=== PATIENT | female | born 1960 | race Caucasian/White ===

== ENCOUNTER → 2017-03-08 | Outpatient (CLI) | payer BC ==
--- NOTE | 2017-03-08 10:46 | P.HPOB ---
History of Present Illness H&P Date: 03/08/17 Chief Complaint: The patient is here for her routine gynecologic exam and mammogram. This is a 57-year-old with an LMP of 2006. The patient is without gynecologic complaints. Review of Systems She is getting about 2 pounds over the last year. She denies respiratory, cardiac, or G.I. problems. Past Medical History Past Medical History: No Reported History History of Any Multi-Drug Resistant Organisms: None Reported Past Surgical History: No Surgical Hx Reported Additional Past Surgical History / Comment(s): D&C. Colonoscopy 2015. 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 - Past Family History Mother Family Medical History: Cancer (Mother had breast cancer.) Medications and Allergies Home Medications and Allergies Comment(s): 1 multivitamin daily. Vitamin D 2000 units daily Home Medications Medication Instructions Recorded Confirmed Type No Known Home Medications [No 03/17/16 03/22/16 History Known Home Medications] Allergies Allergy/AdvReac Type Severity Reaction Status Date / Time No Known Allergies Allergy Verified 03/22/16 10:16 Exam - Vital Signs Vital signs: Blood pressure 144/81, height 5'4", weight 231 pounds, BMI 40, temperature 97.4 , pulse 102. This is a well-developed well-nourished white female who is alert and oriented times 3 in no acute distress. HEENT: Within normal limits. NECK: Supple without mass or thyromegaly. CHEST AND LUNGS: Clear to auscultation. HEART: Regular rate and rhythm. BREASTS: Are without mass or discharge. AXILLARY EXAM: Negative for adenopathy. BACK: Negative for CVA tenderness. ABDOMEN: Soft, nontender, without palpable masses. PELVIC EXAM: Normal external genitalia with mild atrophy. Cervix and vagina appear normal with mild atrophy. There is no unusual discharge. There is no evidence of prolapse. The uterus is midposition, nongravid size and nontender. There are no palpable adnexal masses or tenderness. RECTAL EXAM: recto vaginal exam is negative for mass or tenderness and is negative for occult blood. EXTREMITIES: Nontender. IMPRESSION: 1. 57-year-old menopausal female with normal gynecologic exam. 2. Mildly elevated blood pressure. PLAN: 1. Pap smear was deferred since she had a normal one last year. 2. Self breast examination was discussed. 3. Mammogram will be done today. 4. We have discussed her elevated blood pressure. I have recommended she regularly take her blood pressure at home since she does have a blood pressure cuff. She will follow-up with Dr. Cool for blood pressure elevations. 5. Osteoporosis prevention was discussed. She will plan on doing a bone density test next year. 6. She will return in one year.
--- NOTE | 2017-03-09 10:49 | MM ---
Reason for exam: screening (asymptomatic). Last mammogram was performed 1 year ago. History: Patient is postmenopausal and had first child at age 30. Family history of breast cancer in mother at age 62. Physical Findings: A clinical breast exam by your physician is recommended on an annual basis and results should be correlated with mammographic findings. MG Screening Mammo w CAD Bilateral CC and MLO view(s) were taken. Prior study comparison: March 03, 2016, bilateral MG screening mammo w CAD. February 10, 2015, bilateral MG screening mammo w CAD. The breast tissue is heterogeneously dense. This may lower the sensitivity of mammography. Stable benign calcifications. Focal asymmetry upper left MLO view, 6.2cm from nipple. This finding is changed when compared with previous exams. ASSESSMENT: Incomplete: need additional imaging evaluation, BI-RAD 0 RECOMMENDATION: Special view mammogram of the left breast. If lesion persists on supplemental views, image directed ultrasound is recommended. [facility] will attempt to contact patient to return for supplemental views and ultrasound if indicated.
== END ==
LOC: WWCWWP 09:58
PROVIDERS: ATTEND Obstetrics & Gynecology
DX: Z12.31 Encounter for screening mammogram for malignant neoplasm of breast (principal)

== ENCOUNTER → 2017-04-08 | Day surgery (SDC) | payer BC ==
[2017-04-08 09:29] VITALS: RESP 16; BMI 37.8
[2017-04-08 11:05] VITALS: BP 137/93; PULSE 79; TEMP 97
--- NOTE | 2017-04-08 11:14 | USB ---
EXAMINATION TYPE: US biopsy breast VAD LT, MG diagnostic mammo LT wo CAD, MG 3D diag mammo w/cad LT DATE OF EXAM: 04/08/2017 CLINICAL HISTORY: R92.8 Prev abnormal. TECHNIQUE: Ultrasound guided core biopsy of left breast. COMPARISON: Exams dating back to 03/08/2017 FINDINGS: Preprocedural 3-D two-view imaging was performed in the CC and LM projections. The previously described 6 mm asymmetry appears is fibroglandular tissue and is compatible with summation artifact on 3-D images. However a 5 mm asymmetry is seen near the 3:00 position corresponding to an irregular hypoechoic mass on ultrasound of the same day. Biopsy was therefore performed of the suspicious mass. Findings were discussed with the patient. The procedure of ultrasound guided core biopsy was explained to the patient. Benefits, alternatives, and risks were discussed. An informed consent was then obtained. The patient was placed in supine positioning for imaging and for the procedure. The overlying skin was prepped and draped in usual sterile fashion. 10 cc of 1% lidocaine without epinephrine was used as anesthetic into the skin and subcutaneous tissue up to 0.5 x 0.4 x 0.4 cm hypoechoic irregular taller than wide mass with a hyperechoic halo of the 3 clock position in the left breast. Also noted adjacent to this mass on ultrasound image 16 a more elongated area of similar echogenicity is noted 4 mm from the biopsy primary mass. Under ultrasound guidance, a 12-gauge vacuum assisted biopsy gun device was used to obtain 6 core samples. Following this, a coil-shaped biopsy marker was left in lesion. The patient tolerated the procedure well without any immediate complication. The patient was kept in the radiology department for short stay after the procedure and then discharged home in stable condition. IMPRESSION: Successful, uncomplicated ultrasound guided core biopsy of a 5 mm suspicious mass with elongated area of similar echogenicity seen 4 mm from the biopsied index mass, full pathology results to follow. Recommendations for the similar area will be made upon radiologic pathologic correlation. If lobular carcinoma is found further evaluation is recommended as this tends to grow along tissue planes. Pathology Results: Benign BREAST, LEFT, ULTRASOUND GUIDED CORE BIOPSY: FIBROCYSTIC CHANGE (STROMAL FIBROSIS, CYST FORMATION AND DUCT HYPERPLASIA). Recommendation Follow up mammogram of the left breast in 6 months. SHAQUILLED
== END | disposition home or self-care (01) ==
LOC: RADUSWWP 08:53 → EDSTATUS 10:00
PROVIDERS: ATTEND Surgery
DX: N60.32 Fibrosclerosis of left breast (principal); N60.02 Solitary cyst of left breast; N60.92 Unspecified benign mammary dysplasia of left breast
CPT/HCPCS: 88305; 19083; G0206; G0279; A4648; J2001

== ENCOUNTER 2017-05-17 09:02 | Day surgery (SDC) | payer BC ==
[2017-05-03 15:28] VITALS: BMI 37.8
[~2017-05-17 09:02] MED LIST: DEXAMETHASONE SOD PHOSPHATE 10 MG/ML 1 ML VIAL IV ONE; HEPARIN SODIUM,PORCINE 5,000 UNIT/ML 1 ML VIAL SQ ONE; HYDROmorphone 0.5 MG/0.5 ML SYRINGE IVP PRN; LACTATED RINGERS 1,000 ML IV SCH; LIDOCAINE 1% 20 ML VIAL (10MG/ML) FOR IV START INTRADERMA PRN; ONDANSETRON 4 MG/2 ML VIAL IVP ONE; Pre Op ABX Message 1 EACH MISC MISCELLANE ONE; SCOPOLAMINE 1.5MG/72HR PATCH TRANSDERM ONE
[2017-05-17 10:03] VITALS: BP 137/78; PULSE 102; RESP 16; TEMP 98.9
[2017-05-17] MEDS ORDERED: ALPRAZolam 0.5 MG TAB PO ONE (10:03)
[2017-05-17] MEDS ORDERED: ALPRAZolam 0.5 MG TAB PO STA (10:14)
--- NOTE | 2017-05-20 08:53 | MM ---
discontinued needle localization left breast HISTORY: Recent benign ultrasound guided core biopsy of the left breast with clip placement. Clip raya cement was discordant with regards to site of initial concern on workup mammography of 03/11/2017. The site of concern left breast was reevaluated with 3-D images. The densities in question does not p ersist and therefore was felt that the needle localization with open biopsy be discontinued. This was discussed with the patient and Dr. Jaguar Vanessa and six-month follow-up mammography of the left breast is recommended as a precautionary measure. IMPRESSION: Probably benign BI-RADS 3 Recommendation: 6 month follow-up mammography left breast
== END 2017-05-17 11:14 | disposition home or self-care (01) ==
LOC: OR 09:02
PROVIDERS: ATTEND Surgery
DX: N60.12 Diffuse cystic mastopathy of left breast (principal)
CPT/HCPCS: 77065; G0279

== ENCOUNTER → 2017-11-14 | Outpatient (CLI) | payer BC ==
--- NOTE | 2017-11-14 09:20 | MM ---
Reason for exam: screening (asymptomatic). Last mammogram was performed 6 months ago. History: Patient is postmenopausal and had first child at age 30. Family history of breast cancer in cousin at age 57 and breast cancer in mother at age 62. Benign US biopsy breast VAD LT of the left breast, April 08, 2017. Physical Findings: A clinical breast exam by your physician is recommended on an annual basis and results should be correlated with mammographic findings. MG 3D Diag Mammo W/Cad LT CC and MLO view(s) were taken of the left breast. Prior study comparison: May 17, 2017, left breast MG 3d diag mammo w/cad LT. April 08, 2017, left breast MG diagnostic mammo LT wo CAD. April 08, 2017 , left breast MG 3d diag mammo w/cad LT. February 08, 2014, bilateral MG screening mammo w CAD. February 07, 2013, bilateral digital screening mammo w/CAD. The breast tissue is heterogeneously dense. This may lower the sensitivity of mammography. Previous mammotome biopsy in the left breast. Additional precautionary short interval follow up recommended, total 1 year follow up. No significant new findings when compared with previous films. These results were verbally communicated with the patient and result sheet given to the patient on 11/14/17. ASSESSMENT: Probably benign, BI-RAD 3 RECOMMENDATION: Follow-up diagnostic mammogram of both breasts in 3 months (total 1 year followup for the left breast). Back on schedule for February 2018. WADE
--- NOTE | 2017-11-17 09:29 | P.GSHP ---
History of Present Illness H&P Date: 11/17/17 The patient is a 57-year-old white female with a history of a prior left breast ultrasound-guided core biopsy. There was some concern that the findings on ultrasound core biopsy were discordant and she was recommended to undergo a needle localization and excisional biopsy in March 2017. At that time repeat mammogram did not show any lesion of concern and it was felt that she should have a repeat left breast mammogram in 6 months time. The patient has never felt anything of concern in her breast. Additionally she has no trauma to the breast no pain in the breast and no nipple discharge or skin changes of concern. A repeat mammogram of the left breast was performed on . This did not show any significant new findings compared with previous films was felt to be probably benign BIRADS 3 and follow-up bilateral mammogram in 3 months was recommended. Family history: 1. Mother: Breast cancer mid 50s 2. Maternal cousin: Breast cancer in her 40s Hormonal history: Menarche: Routine Pregnancies: 5, 2 miscarriages 3 live births, breast feeding: Yes all of them First live at 30 Menopause: Late 40s control pills: 30 years Hormones: Negative Past surgical history: 1. D&Cs related to miscarriages 2. Ultrasound core biopsy of the left breast Past medical history: 1. Negative Social history: Smoking: Negative Alcohol: Occasionally Drugs: Negative Review of systems: HEENT: decreased hearing left ear Lungs: none heart: none GI: none : none ALLERGIES: Negative Bleeding abnormalities: Negative Musculoskeletal: Negative Neurologic: Negative - Constitutional Constitutional: Denies chills, Denies fever - EENT Eyes: bilateral as per HPI Ears: left: decreased hearing Ears, nose, mouth and throat: Denies headache, Denies sore throat - Breasts Breasts: bilateral: as per HPI - Cardiovascular Cardiovascular: Denies chest pain, Denies shortness of breath - Respiratory Respiratory: Denies cough, Denies 7 - Gastrointestinal Gastrointestinal: Denies abdominal pain, Denies diarrhea, Denies nausea, Denies vomiting - Genitourinary (Female) Genitourinary: Denies dysuria, Denies hematuria - Menstruation Menstruation: Reports post hysterectomy - Musculoskeletal Musculoskeletal: Denies myalgias - Integumentary Integumentary: Denies pruritus, Denies rash - Neurological Neurological: Denies numbness, Denies weakness - Psychiatric Psychiatric: Denies anxiety, Denies depression - Endocrine Endocrine: Denies fatigue, Denies weight change - Hematologic/Lymphatic Hematologic/Lymphatic: Reports as per HPI - Allergic/Immunologic Allergic/Immunologic: Reports as per HPI Past Medical History Past Medical History: No Reported History History of Any Multi-Drug Resistant Organisms: None Reported Past Surgical History: No Surgical Hx Reported Additional Past Surgical History / Comment(s): D&C. Colonoscopy 2016. Past Anesthesia/Blood Transfusion Reactions: No Reported Reaction Smoking Status: Never smoker - Past Family History Mother Family Medical History: Cancer Medications and Allergies Home Medications Medication Instructions Recorded Confirmed Type Cholecalciferol [Vitamin D3] 1,000 unit PO BID 03/24/17 05/17/17 History Multivitamins, Thera [Multivitamin 1 each PO DAILY 03/24/17 05/17/17 History (formulary)] [place]-3 Fatty Acids/Fish Oil [Fish 1 each PO DAILY 03/24/17 05/17/17 History Oil 1,000 mg Softgel] Allergies Allergy/AdvReac Type Severity Reaction Status Date / Time No Known Allergies Allergy Verified 05/03/17 15:18 Surgical - Exam - General obese - Eyes normal ocular movement, no icteric - ENT no hearing loss, no congestion - Neck no masses, trachea midline - Respiratory normal respiratory effort, clear to auscultation - Cardiovascular Rhythm: regular Heart Sounds: normal: S1, S2 - Abdomen Abdomen: soft, non tender, no guarding, no rigid, no rebound - Neurologic no disoriented, no combative - Musculoskeletal normal gait, normal posture - Psychiatric oriented to time, oriented to person, oriented to place, speech is normal, memory intact Breast examination: Right breast: Multi-positional exam no dominant masses or nodules of concern Right axilla: No adenopathy of concern Left breast: Multi-positional exam no dominant masses or nodules of concern Left axilla: No adenopathy of concern Results Mammogram and prior ultrasound reviewed Assessment and Plan Assessment: Impression: 1. Recent mammogram of the left breast BIRADS 3 however ultrasound is the device that noticed an area of concern for which biopsy was attempted 2. Biopsy results may be discordant with what was seen on ultrasound Plan: 1. Repeat ultrasound of the left breast at this time 2. Depending on results of ultrasound repeat bilateral mammogram in February with physician exam at that time CC: Dr. Min
== END | disposition home or self-care (01) ==
LOC: RADMAMWWP 06:51
PROVIDERS: ATTEND Surgery
DX: R92.8 Other abnormal and inconclusive findings on diagnostic imaging of breast (principal)
CPT/HCPCS: 77061; 77065

== ENCOUNTER → 2017-11-17 | Outpatient (CLI) | payer BC ==
[2017-11-17 09:07] VITALS: BP 119/76; PULSE 82; BMI 37.8
--- NOTE | 2017-11-17 10:17 | USB ---
Reason for exam: clinical finding. History: Patient is postmenopausal and had first child at age 30. Family history of breast cancer in cousin at age 57 and breast cancer in mother at age 62. Benign US biopsy breast VAD LT of the left breast, April 08, 2017. US Breast Limited LT Left limited breast ultrasound including focal area of concern, retroareolar and axilla demonstrates a 0.5 x 0.4 x 0.5cm round, shadowing lesion at 12 o'clock that correlated with dystrophic calcifications on mammogram, a 0.5cm and a 0.4cm node at the axilla. These results were verbally communicated with the patient and result sheet given to the patient on 11/17/17. ASSESSMENT: Benign, BI-RAD 2 RECOMMENDATION: Return to routine screening mammogram schedule for both breasts. Back on schedule.
== END | disposition home or self-care (01) ==
LOC: WWCWWP 08:49
PROVIDERS: ATTEND Surgery
DX: N63.20 Unspecified lump in the left breast, unspecified quadrant (principal)

== ENCOUNTER → 2017-11-17 | Outpatient (CLI) | payer BC | END | disposition home or self-care (01) | LOC: RADUSWWP 09:34 | PROVIDERS: ATTEND Surgery | DX: Z53.9 Procedure and treatment not carried out, unspecified reason (principal) ==

== ENCOUNTER → 2018-03-14 | Outpatient (CLI) | payer BC ==
[2018-03-14 13:36] VITALS: BP 136/77; PULSE 96; TEMP 98.1; BMI 39.4
--- NOTE | 2018-03-14 14:23 | P.HPOB ---
History of Present Illness H&P Date: 03/14/18 Chief Complaint: The patient is here for her routine gynecologic exam and mammogram. This is a 58-year-old with an LMP of 2006. The patient is without gynecologic complaints and denies any postmenopausal bleeding. Review of Systems The patient's weight has been stable over the last year. She denies respiratory , cardiac, or G.I. problems. 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 History of Any Multi-Drug Resistant Organisms: None Reported Past Surgical History: No Surgical Hx Reported, Breast Surgery (Left breast biopsy) Additional Past Surgical History / Comment(s): D&C. Colonoscopy 2016. 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 - Past Family History Mother Family Medical History: Cancer (Breast cancer) Additional Family Medical History / Comment(s): Grandparents had diabetes. Medications and Allergies Home Medications Medication Instructions Recorded Confirmed Type Cholecalciferol [Vitamin D3] 1,000 unit PO BID 03/24/17 03/14/18 History Multivitamins, Thera [Multivitamin 1 each PO DAILY 03/24/17 03/14/18 History (formulary)] Allergies Allergy/AdvReac Type Severity Reaction Status Date / Time No Known Allergies Allergy Verified 03/14/18 13:36 Exam Vital Signs Temp Pulse BP 03/14/18 13:30 98.1 F 96 136/77 Intake and Output 03/13/18 03/14/18 03/14/18 22:59 06:59 14:59 Other: Weight 104.326 kg Height 5'4", weight 230 pounds, BMI 39.5. This is a well-developed well-nourished heavyset white female who is alert and oriented times 3 in no acute distress. HEENT: Within normal limits. NECK: Supple without mass or thyromegaly. CHEST AND LUNGS: Clear to auscultation. HEART: Regular rate and rhythm. BREASTS: Are without mass or discharge. AXILLARY EXAM: Negative for adenopathy. BACK: Negative for CVA tenderness. ABDOMEN: Soft, mildly obese, nontender, without palpable masses. PELVIC EXAM: Normal external genitalia with mild to moderate atrophy. Cervix and vagina appear normal with mild to moderate atrophy. There is no unusual discharge. There is no evidence of prolapse. The uterus is midposition, nongravid size and nontender. There are no palpable adnexal masses or tenderness. RECTAL EXAM: rectovaginal exam is negative for mass or tenderness and is negative for occult blood. EXTREMITIES: Nontender. IMPRESSION: 1. 58-year-old menopausal female with normal gynecologic exam. PLAN: 1. Pap smear was performed. 2. Self breast awareness was discussed with the patient. 3. Diagnostic bilateral mammogram was ordered by Dr. Jaguar Vanessa following her left breast biopsy last year. This will be done today. 4. Osteoporosis prevention was discussed. I have stressed the importance of adequate calcium, vitamin D and regular exercise. Recommended amounts of calcium and vitamin D were also discussed. Bone density testing has been done by Dr. Cool were. Her last one was approximately 2013. She will talk with Dr. Cool to see when her next one should be done. 5. She will return in one year.
--- NOTE | 2018-03-14 15:08 | MM ---
Reason for exam: additional evaluation requested from prior study. Last mammogram was performed 4 months ago. History: Patient is postmenopausal and had first child at age 30. Family history of breast cancer in cousin at age 57 and breast cancer in mother at age 62. Benign US biopsy breast VAD LT of the left breast, April 08, 2017. Physical Findings: Dr. Arellano did breast exam. MG 3D Diag Mammo Wo Cad [facility] Bilateral CC and MLO view(s) were taken. Prior study comparison: November 14, 2017, left breast MG 3d diag mammo w/cad LT. May 17, 2017, left breast MG 3d diag mammo w/cad LT. The breast tissue is heterogeneously dense. This may lower the sensitivity of mammography. No significant new findings when compared with previous films. These results were verbally communicated with the patient and result sheet given to the patient on 03/14/18. ASSESSMENT: Benign, BI-RAD 2 RECOMMENDATION: Routine screening mammogram of both breasts in 1 year.
== END ==
LOC: WWCWWP 13:05
PROVIDERS: ATTEND Obstetrics & Gynecology
DX: R92.8 Other abnormal and inconclusive findings on diagnostic imaging of breast (principal)
CPT/HCPCS: 77062; 77066

== ENCOUNTER → 2019-04-03 | Outpatient (CLI) | payer BC ==
[2019-04-03 08:07] VITALS: BP 141/83; PULSE 95; RESP 18; TEMP 98.6
--- NOTE | 2019-04-03 08:34 | P.HPOB ---
History of Present Illness H&P Date: 04/03/19 Chief Complaint: The patient is here for her routine gynecologic exam and ma mmogram. This is a 59-year-old with an LMP of 2006. The patient is without gynecologic complaints. Review of Systems The patient has lost 5 pounds over the last year. She denies respiratory, cardiac, or G.I. problems. 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 History of Any Multi-Drug Resistant Organisms: None Reported Past Surgical History: No Surgical Hx Reported, Breast Surgery Additional Past Surgical History / Comment(s): D&C. Colonoscopy 2016(next after 10yr). Left breast biopsy. 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 - Past Family History Mother Family Medical History: Cancer Additional Family Medical History / Comment(s): Breast cancer. Grandparents had diabetes. Medications and Allergies Home Medications Medication Instructions Recorded Confirmed Type Cholecalciferol [Vitamin D3] 1,000 unit PO BID 03/24/17 04/03/19 History Multivitamins, Thera [Multivitamin 1 each PO DAILY 03/24/17 04/03/19 History (formulary)] Allergies Allergy/AdvReac Type Severity Reaction Status Date / Time No Known Allergies Allergy Verified 04/03/19 08:09 Exam Vital Signs Temp Pulse Resp BP Pulse Ox 04/03/19 08:05 98.6 F 95 18 141/83 98 Intake and Output 04/02/19 04/03/19 04/03/19 22:59 06:59 14:59 Other: Weight 102.058 kg Height 5 feet 5 inches, weight 225 pounds, BMI 37.4. This is a well-developed well-nourished white female who is alert and oriented times 3 in no acute distress. HEENT: Within normal limits. NECK: Supple without mass or thyromegaly. CHEST AND LUNGS: Clear to auscultation. HEART: Regular rate and rhythm. BREASTS: Are without mass or discharge. AXILLARY EXAM: Negative for adenopathy. BACK: Negative for CVA tenderness. ABDOMEN: Soft, nontender, without palpable masses. PELVIC EXAM: Normal external genitalia with mild atrophy. Cervix and vagina appear normal mild atrophy. There is no unusual discharge. There is no evidence of prolapse. The uterus is midposition, nongravid size and nontender. There are no palpable adnexal masses or tenderness. RECTAL EXAM: rectovaginal exam is negative for mass or tenderness and is negative for occult blood. EXTREMITIES: Nontender. IMPRESSION: 1. 59-year-old menopausal female with normal gynecologic exam. 2. Mildly elevated blood pressure. PLAN: 1. Pap smear was deferred since she had a normal one on 03/14/2018. 2. Self breast awareness was discussed with the patient. 3. Screening mammogram will be done today. 4. Osteoporosis prevention was discussed. I have stressed the importance of adequate calcium, vitamin D and regular exercise. Recommended amounts of calcium and vitamin D were also discussed. Bone density test was done on 02/14/2019 and was normal. We will plan on repeating this in approximately 5 years. 5. Her elevated blood pressure was discussed. I have recommended that she check her own blood pressure on a regular basis since she has her own blood pressure cuff. She will follow-up with Dr. Cool regarding blood pressure elevations. 6. She was advised to return in one year for her annual well woman exam.
--- NOTE | 2019-04-06 10:53 | MM ---
Reason for exam: screening (asymptomatic). Last mammogram was performed 1 year and 1 month ago. History: Patient is postmenopausal and had first child at age 30. Family history of breast cancer in cousin at age 57 and breast cancer in mother at age 62. Benign US biopsy breast VAD LT of the left breast, April 08, 2017. Physical Findings: A clinical breast exam by your physician is recommended on an annual basis and results should be correlated with mammographic findings. MG 3D Screening Mammo W/Cad Bilateral CC and MLO view(s) were taken. Prior study comparison: March 14, 2018, bilateral MG 3d diag mammo wo cad [facility]. November 14, 2017, left breast MG 3d diag mammo w/cad LT. No significant changes when compared with prior studies. ASSESSMENT: Benign, BI-RAD 2 RECOMMENDATION: Routine screening mammogram of both breasts in 1 year.
== END | disposition home or self-care (01) ==
LOC: WWCWWP 07:52
PROVIDERS: ATTEND Obstetrics & Gynecology
DX: Z12.31 Encounter for screening mammogram for malignant neoplasm of breast (principal)
CPT/HCPCS: 77063; 77067

== ENCOUNTER → 2019-10-02 | Day surgery (SDC) | payer BC ==
[2019-09-28 12:00] VITALS: BMI 38.6
[~2019-10-02] MED LIST changes: -DEXAMETHASONE SOD PHOSPHATE 10 MG/ML 1 ML VIAL IV ONE; +GLYCOPYRROLATE 0.2 MG/ML 2 ML VIAL ONE; -HEPARIN SODIUM,PORCINE 5,000 UNIT/ML 1 ML VIAL SQ ONE; -HYDROmorphone 0.5 MG/0.5 ML SYRINGE IVP PRN; -LIDOCAINE 1% 20 ML VIAL (10MG/ML) FOR IV START INTRADERMA PRN; +LIDOCAINE 1% INJ 10MG/ML (20 ML MDV) ONE; +MIDAZOLAM 2 MG/2 ML VIAL ONE; -ONDANSETRON 4 MG/2 ML VIAL IVP ONE; +PROPOFOL 10 MG/ML 20 ML VIAL IV ONE; -Pre Op ABX Message 1 EACH MISC MISCELLANE ONE; -SCOPOLAMINE 1.5MG/72HR PATCH TRANSDERM ONE; +fentaNYL (PF) 50 MCG/ML 2 ML AMP ONE
[2019-10-02 08:02] VITALS: TEMP 97.4
[2019-10-02 09:09] VITALS: PULSE 100; RESP 17
--- NOTE | 2019-10-02 09:09 | P.PCN ---
Date of Procedure: 10/02/19 Description of Procedure: Brief history: Patient is a pleasant scheduled for an elective upper endoscopy as well as colonoscopy as a part of evaluation of heartburn and blood in her stool. Last colonoscopy in 2015 and normal. She was reporting some increased frequency of stool denying any gross blood per rectum. Occasional acid regurgitation with no nausea or vomiting. Procedure performed: Esophagogastroduodenoscopy with biopsy Colonoscopy with biopsy Estimated blood loss: Minimal. Preoperative diagnosis: Heartburn, blood in stool, last colonoscopy 2015 Anesthesia: MAC Procedure: After informed consent was obtained from the patient was brought into the endoscopy unit and IV sedation was administered by anesthesia under continuous monitoring. Initially upper endoscopy was done. The Olympus GF 190 video endoscope was inserted into the mouth and esophagus intubated without any difficulty and was gradually advanced into the stomach and duodenum and carefully examined. The bulb and second part of the duodenum appeared normal, with biopsies taken to rule out celiac sprue. The scope was then withdrawn into the stomach adequately insufflated with air and upon careful examination the antrum and body, cardia and fundus appeared normal with some mild scattered erythema in the antrum and body suggestive of mild gastritis with biopsies taken. The scope was then withdrawn into the esophagus. The GE junction was located at 35 cm to the incisors with biopsies taken. A 2 cm hiatal hernia was noted. It appeared regular with no erythema erosions or ulcerations. Rest of the esophagus appeared normal. Patient tolerated the procedure well. At this time the patient continued to remain sedation. Initial digital rectal examination was normal. Olympus CF 190 video colonoscope was then inserted into the rectum and gradually advanced to the cecum without any difficulty. Careful examination was performed as the scope was gradually being withdrawn. The prep was fair with a large amount of liquid stool throughout the colon with seeds and solid components which clogged our scope and prohibited complete suction and visualization. The cecum, ascending colon, transverse colon, descending colon, sigmoid colon and rectum appeared normal, however complete visualization of the mucosa limited by the patient's prep. Right colonic biopsies taken. Retroflexion was performed in the rectum and no lesions were noted, low-grade internal hemorrhoids noted. Patient tolerated the procedure well. Impression: 1. Mild gastritis antrum body, biopsied. Small hiatal hernia. Biopsies of the duodenum and GE junction. 2. Fair prep with liquid stool throughout the entire colon with solid components which clogged the scope and prohibited lavage and suction incomplete visualization of the mucosa. Low-grade internal hemorrhoids. Right colon biopsies given altered bowel function. Recommendations: Findings of this examination were discussed with the patient as well as her family. Okay to resume diet. Okay to resume medications. Await pathology from biopsies. Follow up in gastroenterology clinic as previously scheduled. Would recommend repeat colonoscopy for screening as previously indicated on last colonoscopy in 6 years, unless signs or symptoms which warrant further evaluation develop.
[2019-10-02 09:26] VITALS: BP 162/79
== END ==
LOC: ORWHC2ENDO 07:38
PROVIDERS: ATTEND Internal Medicine
DX: K63.89 Other specified diseases of intestine (principal); K92.1 Melena; K29.50 Unspecified chronic gastritis without bleeding; K44.9 Diaphragmatic hernia without obstruction or gangrene; K64.8 Other hemorrhoids; K20.0 Eosinophilic esophagitis; Z98.890 Other specified postprocedural states; Z79.82 Long term (current) use of aspirin
CPT/HCPCS: 88305; 45380; 43239; J2250; J2001; J3010; J2704

== ENCOUNTER → 2020-11-18 | Outpatient (CLI) | payer BC ==
[2020-11-18 07:53] VITALS: BP 131/77; PULSE 95; RESP 18; TEMP 98
--- NOTE | 2020-11-18 08:33 | P.HPOB ---
History of Present Illness H&P Date: 11/18/20 Chief Complaint: The patient is here for her routine gynecologic exam and ma mmogram. This is a 60-year-old 0-3 with an LMP of 2006. The patient is without gynecologic complaints and denies any postmenopausal bleeding. Review of Systems The patient has gained 10 pounds over the last year. She denies respiratory, cardiac, or G.I. problems. 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 History of Any Multi-Drug Resistant Organisms: None Reported Past Surgical History: Breast Surgery Additional Past Surgical History / Comment(s): D&C. Colonoscopy 2016(next after 10yr). Left breast biopsy. 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 - Past Family History Mother Family Medical History: Cancer Additional Family Medical History / Comment(s): Breast cancer. Medications and Allergies Home Medications Medication Instructions Recorded Confirmed Type Cholecalciferol [Vitamin D3] 1,000 unit PO BID 03/24/17 11/18/20 History Aspirin 1 - 2 tab PO DIRECTED PRN 09/28/19 11/18/20 History Multivit with Calcium,Iron,Min 1 each PO DAILY 09/28/19 11/18/20 History [Women's Multivitamin] Allergies Allergy/AdvReac Type Severity Reaction Status Date / Time No Known Allergies Allergy Verified 11/18/20 07:54 Exam Vital Signs Temp Pulse Resp BP Pulse Ox 11/18/20 07:51 98.0 F 95 18 131/77 97 Intake and Output 11/17/20 11/18/20 11/18/20 22:59 06:59 14:59 Other: Weight 106.594 kg Height 5 feet 4 inches, weight 235 pounds, BMI 40.3. This is a well-developed well-nourished white female who is alert and oriented times 3 in no acute distress. HEENT: Within normal limits. NECK: Supple without mass or thyromegaly. CHEST AND LUNGS: Clear to auscultation. HEART: Regular rate and rhythm. BREASTS: Are without mass or discharge. AXILLARY EXAM: Negative for adenopathy. BACK: Negative for CVA tenderness. ABDOMEN: Soft, nontender, without palpable masses. PELVIC EXAM: Normal external genitalia with mild atrophy. Cervix and vagina appear normal mild atrophy. There is no unusual discharge. There is no evidence of prolapse. The uterus is midposition, nongravid size and nontender. There are no palpable adnexal masses or tenderness. RECTAL EXAM: Rectovaginal exam is negative for mass or tenderness and is negative for occult blood. EXTREMITIES: Nontender. IMPRESSION: 1. 60-year-old menopausal female with normal gynecologic exam PLAN: 1. Pap smear cotest was performed. 2. Self breast awareness was discussed with the patient. We have reviewed symptoms of inflammatory breast cancer. 3. Screening mammogram will be done today. 4. Osteoporosis prevention was discussed. I have stressed the importance of adequate calcium, vitamin D and regular exercise. Recommended amounts of mikki cium and vitamin D were also discussed. Bone density test will be due in 2023. 5. She has completed her Covid vaccination series. 6. She was advised to return in one year for her annual well woman exam.
--- NOTE | 2020-11-20 13:59 | MM ---
Reason for exam: screening (asymptomatic). Last mammogram was performed 1 year and 8 months ago. History: Patient is postmenopausal and had first child at age 30. Family history of breast cancer in cousin at age 57 and breast cancer in mother at age 62. Benign US biopsy breast VAD LT of the left breast, April 08, 2017. Physical Findings: A clinical breast exam by your physician is recommended on an annual basis and results should be correlated with mammographic findings. MG 3D Screening Mammo W/Cad Bilateral CC and MLO view(s) were taken. Prior study comparison: April 03, 2019, bilateral MG 3d screening mammo w/cad. March 14, 2018, bilateral MG 3d diag mammo wo cad [facility]. The breast tissue is heterogeneously dense. This may lower the sensitivity of mammography. Finding: There are indeterminate calcifications in the subareolar position of the left breast. New finding since April 03, 2019 and March 14, 2018. ASSESSMENT: Incomplete: need additional imaging evaluation, BI-RAD 0 RECOMMENDATION: Special view mammogram of the left breast. [facility] will attempt to contact patient to return for supplemental views.
== END | disposition home or self-care (01) ==
LOC: WWCWWP 07:38
PROVIDERS: ATTEND Obstetrics & Gynecology
DX: Z12.31 Encounter for screening mammogram for malignant neoplasm of breast (principal); Z78.0 Asymptomatic menopausal state
CPT/HCPCS: 77063; 77067

== ENCOUNTER → 2020-11-26 | Outpatient (CLI) | payer BC ==
--- NOTE | 2020-11-26 09:40 | MM ---
Reason for exam: additional evaluation requested from abnormal screening. Last mammogram was performed less than 1 month ago. History: Patient is postmenopausal and had first child at age 30. Family history of breast cancer in cousin at age 57 and breast cancer in mother at age 62. Benign US biopsy breast VAD LT of the left breast, April 08, 2017. Physical Findings: Nurse did not find any significant physical abnormalities on exam. MG 3D Work Up W/Cad LT CC with magnification, LM with magnification, and LM view(s) were taken of the left breast. Prior study comparison: November 18, 2020, bilateral MG 3d screening mammo w/cad. April 03, 2019, bilateral MG 3d screening mammo w/cad. The breast tissue is heterogeneously dense. This may lower the sensitivity of mammography. Eggshell calcification left breast is without suspicious cluster. These results were verbally communicated with the patient and result sheet given to the patient on 11/26/20. ASSESSMENT: Benign, BI-RAD 2 RECOMMENDATION: Return to routine screening mammogram schedule for both breasts.
== END | disposition home or self-care (01) ==
LOC: RADMAMWWP 08:51
PROVIDERS: ATTEND Obstetrics & Gynecology
DX: R92.8 Other abnormal and inconclusive findings on diagnostic imaging of breast (principal)
CPT/HCPCS: 77061; 77065

== ENCOUNTER → 2021-12-29 | Outpatient (CLI) | payer BC ==
[2021-12-29 12:54] VITALS: BP 125/84; PULSE 91; RESP 17; TEMP 97.9
--- NOTE | 2021-12-29 13:26 | P.HPOB ---
History of Present Illness H&P Date: 12/29/21 Chief Complaint: The patient is here for her routine gynecologic exam and ma mmogram. This is a 61-year-old with an LMP of 2006. The patient is without gynecologic complaints and denies any postmenopausal bleeding. Review of Systems The patient's weight has been stable over the last year. She denies respiratory, cardiac, or G.I. problems. 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 History of Any Multi-Drug Resistant Organisms: None Reported Past Surgical History: Breast Surgery Additional Past Surgical History / Comment(s): D&C. EGD 2019. Colonoscopy 2019(next after 6yr). Left breast biopsy. 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 - Past Family History Mother Family Medical History: Cancer Additional Family Medical History / Comment(s): Breast cancer. Medications and Allergies Home Medications Medication Instructions Recorded Confirmed Type Cholecalciferol [Vitamin D3] 1,000 unit PO BID 03/24/17 12/29/21 History Multivit with Calcium,Iron,Min 1 each PO DAILY 09/28/19 12/29/21 History [Women's Multivitamin] Allergies Allergy/AdvReac Type Severity Reaction Status Date / Time No Known Allergies Allergy Verified 12/29/21 12:49 Exam Vital Signs Temp Pulse Resp BP Pulse Ox 12/29/21 12:49 97.9 F 91 17 125/84 97 Intake and Output 12/28/21 12/29/21 12/29/21 22:59 06:59 14:59 Other: Weight 106.141 kg Height 5 feet 4 inches, weight 234 pounds, BMI 40.2. This is a well-developed well-nourished heavyset white female who is alert and oriented times 3 in no acute distress. HEENT: Within normal limits. NECK: Supple without mass or thyromegaly. CHEST AND LUNGS: Clear to auscultation. HEART: Regular rate and rhythm. BREASTS: Are without mass or discharge. AXILLARY EXAM: Negative for adenopathy. BACK: Negative for CVA tenderness. ABDOMEN: Soft, nontender, without palpable masses. PELVIC EXAM: Normal external genitalia with mild atrophy. Cervix and vagina appear normal with mild atrophy. There is no unusual discharge. There is no evidence of prolapse. The uterus is midposition, nongravid size and nontender. There are no palpable adnexal masses or tenderness. RECTAL EXAM: Rectovaginal exam is negative for mass or tenderness and is negative for occult blood. EXTREMITIES: Nontender. IMPRESSION: 1. 61-year-old menopausal female with normal gynecologic exam. PLAN: 1. Pap smear was deferred since she had a negative Pap smear cotest on 11/18/2020. 2. Self breast awareness was discussed with the patient. We have also discussed symptoms associated with inflammatory breast cancer. 3. Screening mammogram will be done today. 4. Osteoporosis prevention was discussed. I have stressed the importance of adequate calcium, vitamin D and regular exercise. Recommended amounts of calcium and vitamin D were also discussed. We will plan on repeating bone density testing in 2023 since she had a normal one on 02/14/[address] Cool's office[address] Dr. Cool has since retired. 5. She has completed her Covid vaccination series and has received 2 boosters. 6. She was advised to return in one year for her annual well woman exam.
--- NOTE | 2021-12-30 16:44 | MM ---
Reason for Exam: Screening (asymptomatic). Last mammogram was performed 1 year(s) and 1 month(s) ago. Patient History: Menarche at age 12. First Full-Term at age 30. Late child-bearing (after 30). Postmenopausal. 04/08/2017, Benign Core Biopsy on the left side. Maternal cousin had breast cancer, age 57. Mother had breast cancer, age 62. Risk Values: Chuyita 5 year model risk: 3.4%. NCI Lifetime model risk: 14.0%. Prior Study Comparison: 04/03/2019 Bilateral Screening Mammogram, [facility]. 11/18/2020 Bilateral Screening Mammogram, [facility]. 11/26/2020 Left Diagnostic Mammogram, [facility]. Tissue Density: The breast tissue is heterogeneously dense. This may lower the sensitivity of mammography. Findings: Analyzed By CAD. Pattern appears stable. Punctate chronic nodularities in the posterior left breast. There is a group of punctate calcifications within the medial mid to inferior right breast on craniocaudal projection which appears to have increasing calcifications from comparison. Additional workup is recommended. Overall Assessment: Incomplete: need additional imaging evaluation, BI-RAD 0 Management: Diagnostic Mammogram of the right breast. A negative mammogram report should not preclude additional follow up of suspicious palpable abnormalities. Patient should continue monthly self breast exam. A clinical breast exam by your physician is recommended on an annual basis and results should be correlated with mammographic findings. Electronically signed and approved by: Jigar Shin D.O. Radiologis
== END ==
LOC: WWCWWP 12:35
PROVIDERS: ATTEND Obstetrics & Gynecology
DX: Z01.419 Encounter for gynecological examination (general) (routine) without abnormal findings (principal); Z12.31 Encounter for screening mammogram for malignant neoplasm of breast; Z78.0 Asymptomatic menopausal state
CPT/HCPCS: 77063; 77067

== ENCOUNTER → 2022-01-14 | Outpatient (CLI) | payer BC ==
--- NOTE | 2022-01-14 08:04 | MM ---
Reason for Exam: Additional evaluation requested from abnormal screening. Last screening mammogram was performed less than 1 month ago. Patient History: Menarche at age 12. First Full-Term at age 30. Late child-bearing (after 30). Postmenopausal. 04/08/2017, Benign Core Biopsy on the left side. Maternal cousin had breast cancer, age 57. Mother had breast cancer, age 62. Risk Values: Chuyita 5 year model risk: 3.4%. NCI Lifetime model risk: 14.0%. Prior Study Comparison: 04/27/1994 Screening Mammogram, Unknown. 08/24/1994 Screening Mammogram, Unknown. 06/17/1997 Bilateral Diagnostic Mammogram, [facility]. 08/19/1998 Bilateral Special View Mammogram, [facility]. 09/22/1999 Bilateral Special View Mammogram, [facility]. 09/27/2000 Bilateral Diagnostic Mammogram, [facility]. 09/28/2001 Bilateral Screening Mammogram, [facility]. 10/01/2002 Bilateral Screening Mammogram, [facility]. 10/23/2002 Right Special View Mammogram, [facility]. 10/25/2003 Bilateral Screening Mammogram, [facility]. 10/26/2004 Bilateral Screening Mammogram, [facility]. 10/26/2005 Bilateral Screening Mammogram, [facility]. 10/27/2006 Bilateral Screening Mammogram, [facility]. 11/06/2007 Bilateral Screening Mammogram, [facility]. 11/06/2008 Bilateral Screening Mammogram, [facility]. 01/27/2011 Bilateral Screening Mammogram, [facility]. 02/02/2012 Bilateral Screening Mammogram, [facility]. 02/07/2013 Bilateral Screening Mammogram, [facility]. 02/08/2014 Bilateral Screening Mammogram, [facility]. 02/10/2015 Bilateral Screening Mammogram, [facility]. 03/03/2016 Bilateral Screening Mammogram, [facility]. 03/08/2017 Bilateral Screening Mammogram, [facility]. 03/11/2017 Left Diagnostic Mammogram, [facility]. 03/11/2017 Left Diagnostic Ultrasound, [facility]. 04/08/2017 Left Diagnostic Mammogram, [facility]. 04/08/2017 Left Diagnostic Mammogram, [facility]. 05/17/2017 Left Diagnostic Mammogram, [facility] 11/14/2017 Left Diagnostic Mammogram, [facility] 11/17/2017 Left Diagnostic Ultrasound, [facility]. 03/14/2018 Bilateral Diagnostic Mammogram, [facility]. 04/03/2019 Bilateral Screening Mammogram, [facility]. 11/18/2020 Bilateral Screening Mammogram, [facility]. 11/26/2020 Left Diagnostic Mammogram, [facility]. 12/29/2021 Bilateral MG 3D screening mammo w/cad, [facility]. Tissue Density: Right: The breast tissue is heterogeneously dense. This may lower the sensitivity of mammography. Findings: Analyzed By CAD. Grouped fine pleomorphic calcifications within the inferior medial right breast middle depth. Overall Assessment: Suspicious, BI-RAD 4 Management: Stereotactic Core Biopsy of the right breast. A clinical breast exam by your physician is recommended on an annual basis and results should be correlated with mammographic findings. This exam should not preclude additional follow-up of suspicious palpable abnormalities. Results were given to the patient verbally at the time of exam. Electronically signed and approved by: Adelso Yee D.O.
== END | disposition home or self-care (01) ==
LOC: RADMAMWWP 07:23
PROVIDERS: ATTEND Obstetrics & Gynecology
DX: R92.8 Other abnormal and inconclusive findings on diagnostic imaging of breast (principal); Z78.0 Asymptomatic menopausal state; Z80.3 Family history of malignant neoplasm of breast
CPT/HCPCS: 77061; 77065

== ENCOUNTER → 2022-02-25 | Day surgery (SDC) | payer BC ==
--- NOTE | 2022-02-25 08:41 | P.PCN ---
Date of Procedure: 02/25/22 Preoperative Diagnosis: Abnormal right breast mammogram/microcalcifications of concern lower inner quadrant Postoperative Diagnosis: Same Procedure(s) Performed: Stereotactic core biopsy right breast Anesthesia: local Surgeon: Quin Cardona Pathology: other (Breast tissue/radiograph reveals microcalcifications of concern) Disposition: same day Indications for Procedure: Microcalcifications of concern right breast Operative Findings: Radiographic specimen reveals microcalcifications of concern Description of Procedure: The patient is a 62-year-old white female who underwent a routine screening mammogram was noted to have microcalcifications of concern in her right breast. Stereotactic core biopsy was recommended. Physical examination was performed and no lesions of concern were palpated in either breast. Risks and benefits of the procedure were discussed with the patient. Risks include but are not limited to bleeding, infection, reaction to the anesthetic. The possibility of not seeing the lesion of concern was discussed with the patient and the poss ibility of inadequate tissue acquisition was discussed with the patient as well. The patient understood and wished to proceed. If the lesion were to be discordant further tissue may need to be sampled. The patient was taken to the stereotactic core biopsy room. She was positioned prone on the lo-rad table. A sheet catcher film was obtained. The CC from below approach was utilized. The lesion of concern was identified. The lesion was targeted. A 9-gauge vacuum-assisted core rotating biopsy needle was driven to the correct coordinates after the breast were prepped with Betadine and 20 mL of 1% lidocaine were used to anesthetize the area of concern. A prefire film was obtained. The needle was noted to be in the correct location. The needle was fired. A post fire film was obtained. The needle was noted to be in the correct location. 14 core biopsy specimens were obtained. Radiograph of the specimen revealed the calcifications of concern had been removed. A secure litzy top hat clip was placed. Radiograph revealed the clip to be in the correct location. The patient tolerated the procedure in stable condition. The specimen was sent to pathology. The patient will follow up with Dr. Montesinos. CC: Dr. Arellano
--- NOTE | 2022-02-25 10:51 | MM ---
Date of Procedure: 02/25/22 Preoperative Diagnosis: Abnormal right breast mammogram/microcalcifications of concern lower inner quadrant Postoperative Diagnosis: Same Procedure(s) Performed: Stereotactic core biopsy right breast Anesthesia: local Surgeon: Quin Cardona Pathology: other (Breast tissue/radiograph reveals microcalcifications of concern) Disposition: same day Indications for Procedure: Microcalcifications of concern right breast Operative Findings: Radiographic specimen reveals microcalcifications of concern Description of Procedure: The patient is a 62-year-old white female who underwent a routine screening mammogram was noted to have microcalcifications of concern in her right breast. Stereotactic core biopsy was recommended. Physical examination was performed and no lesions of concern were palpated in either breast. Risks and benefits of the procedure were discussed with the patient. Risks include but are not limited to bleeding, infection, reaction to the anesthetic. The possibility of not seeing the lesion of concern was discussed with the patient and the possibility of inadequate tissue acquisition was discussed with the patient as well. The patient understood and wished to proceed. If the lesion were to be discordant further tissue may need to be sampled. The patient was taken to the stereotactic core biopsy room. She was positioned prone on the lo-rad table. A lead java software engineer film was obtained. The CC from below approach was utilized. The lesion of concern was identified. The lesion was targeted. A 9-gauge vacuum-assisted core rotating biopsy needle was driven to the correct coordinates after the breast were prepped with Betadine and 20 mL of 1% lidocaine were used to anesthetize the area of concern. A prefire film was obtained. The needle was noted to be in the correct location. The needle was fired. A post fire film was obtained. The needle was noted to be in the correct location. 14 core biopsy specimens were obtained. Radiograph of the specimen revealed the calcifications of concern had been removed. A secure litzy top hat clip was placed. Radiograph revealed the clip to be in the correct location. The patient tolerated the procedure in stable condition. The specimen was sent to pathology. The patient will follow up with Dr. Montesinos. WADE
== END ==
LOC: RADMAMWWP 06:57
PROVIDERS: ATTEND Surgery
DX: R92.8 Other abnormal and inconclusive findings on diagnostic imaging of breast (principal)
CPT/HCPCS: 88305; 19081; A4648

== ENCOUNTER → 2022-02-25 | Outpatient (CLI) | payer BC ==
[2022-02-25 07:20] VITALS: BP 158/91; PULSE 94; RESP 18; TEMP 98
--- NOTE | 2022-02-25 07:53 | P.GSHP ---
History of Present Illness H&P Date: 02/25/22 Chief Complaint: Abnormal right breast mammogram Afua is a 62-year-old white female seen in consultation for Dr. Arellano regarding an abnormal right breast mammogram. She underwent a bilateral screening mammogram on which revealed an area of calcification of leena rn in the right breast. A diagnostic right breast mammogram was performed on which revealed pleomorphic calcifications in the inferior medial right breast. Stereotactic core biopsy was recommended. The patient does not feel any lumps masses or nodules of concern in either breast. She is not complaining of any nipple discharge or skin changes. She did have a left breast stereotactic core biopsy several years ago which was benign. Otherwise she's not had any surgery on her breast. Nicotine: none caffiene: diet coke 2 liters/day chocolate: daily BCP: stopped in her 30's used for about 10 years Family History: mother: breast cancer about 55 Hormonal History: menarche: 12 [id number] breast fed: yes, age at first live : 26 menopause: 46 hormones: BCP for about 10 years, did not use hormones at the time of menopause Surgical History: D&C colonoscopy Medical History: none Social History: nicotine: none alcohol: occasional drugs: none - Constitutional Constitutional: Denies chills, Denies fever - EENT Eyes: denies blurred vision, denies pain Ears: left: decreased hearing, tinnitus Ears, nose, mouth and throat: Denies headache, Denies sore throat - Breasts Breasts: bilateral: as per HPI - Cardiovascular Cardiovascular: Denies chest pain, Denies shortness of breath - Respiratory Respiratory: Denies cough, Denies 7 - Gastrointestinal Gastrointestinal: Denies abdominal pain, Denies diarrhea, Denies nausea, Denies vomiting - Genitourinary (Female) Genitourinary: Denies dysuria, Denies hematuria - Menstruation Menstruation: Reports postmenopausal - Musculoskeletal Musculoskeletal: Denies myalgias - Integumentary Integumentary: Denies pruritus, Denies rash - Neurological Neurological: Denies numbness, Denies weakness - Psychiatric Psychiatric: Denies anxiety, Denies depression - Endocrine Endocrine: Denies fatigue, Denies weight change - Hematologic/Lymphatic Comment: none - Allergic/Immunologic Allergic/Immunologic: Reports as per HPI Past Medical History Past Medical History: No Reported History 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 History of Any Multi-Drug Resistant Organisms: None Reported Past Surgical History: Breast Surgery Additional Past Surgical History / Comment(s): D&C. EGD 2019. Colonoscopy 2019(next after 6yr). Left breast biopsy. Past Anesthesia/Blood Transfusion Reactions: No Reported Reaction Past Psychological History: No Psychological Hx Reported Smoking Status: Never smoker Past Alcohol Use History: Rare Past Drug Use History: None Reported - Past Family History Mother Family Medical History: Cancer Additional Family Medical History / Comment(s): Breast cancer. Medications and Allergies Home Medications Medication Instructions Recorded Confirmed Type Cholecalciferol [Vitamin D3] 1,000 unit PO BID 03/24/17 02/25/22 History Multivit with Calcium,Iron,Min 1 each PO DAILY 09/28/19 02/25/22 History [Women's Multivitamin] Allergies Allergy/AdvReac Type Severity Reaction Status Date / Time No Known Allergies Allergy Verified 02/25/22 07:16 Surgical - Exam Vital Signs Temp Pulse Resp BP Pulse Ox 98.0 F 94 18 158/91 99 02/25/22 07:16 02/25/22 07:16 02/25/22 07:16 02/25/22 07:16 02/25/22 07:16 BMI: 40.9 - General no distress - Eyes normal ocular movement - Neck trachea midline - Respiratory normal respiratory effort - Cardiovascular Rhythm: regular Heart Sounds: normal: S1, S2 - Abdomen Abdomen: soft - Integumentary normal turgor - Neurologic no disoriented, no combative - Musculoskeletal normal gait - Psychiatric oriented to time, oriented to person, oriented to place, speech is normal, memory intact Breast Exam: BRA: 42DDD inspection: grade 3 ptois palpation: right breast: Multiple positional exam fibrocystic changes no dominant masses or nodules of concern Right axilla: No adenopathy of concern Left breast: Multi-positional exam fibrocystic changes no dominant masses or nodules of concern Left axilla: No adenopathy of concern Results Mammogram personally reviewed faint calcifications lower inner quadrant right breast stereotactic core biopsy recommended Assessment and Plan Assessment: Impression: Microcalcifications of concern right breast Fibrocystic breast changes Family history of breast cancer Plan: Stereotactic core biopsy right breast Risk and benefits of the procedure discussed with the patient. Risks include but are not limited to bleeding, infection, reaction to the anesthetic. The calcifications are fainting may not be visible for stereotactic core biopsy and this may need to be rescheduled for needle localization and open biopsy in the operating room. Additionally of the tissue were to be discordant on biopsy but further tissue acquisition may be recommended. CC: Dr. Arellano
== END | disposition home or self-care (01) ==
LOC: WWCWWP 06:55
PROVIDERS: ATTEND Surgery
DX: Z53.9 Procedure and treatment not carried out, unspecified reason (principal)

== ENCOUNTER → 2022-03-11 | Outpatient (CLI) | payer BC ==
[2022-03-11 11:08] VITALS: BP 144/84; PULSE 76; RESP 16; TEMP 97
--- NOTE | 2022-03-11 11:35 | P.PN ---
Subjective Progress Note Date: 03/11/22 Principal diagnosis: fibrocystic breast changes Afua is a 62 year old white female status post right breast stero biopsy on 02-25-22. Her pathology was benign fibrocystic changes with microcalcifications in specimen. The microcalcifications were minute. This was however felt to be concordant. She tolerated the procedure without difficulty. Objective - Vital Signs Vital signs: Vital Signs Temp 97.0 F L 03/11/22 11:06 Pulse 76 03/11/22 11:06 Resp 16 03/11/22 11:06 BP 144/84 03/11/22 11:06 Pulse Ox 99 03/11/22 11:06 FiO2 Intake & Output 03/10/22 03/11/22 03/11/22 18:59 06:59 18:59 Weight 102.058 kg - Constitutional General appearance: Present: cooperative - EENT Eyes: Present: EOMI ENT: Present: hearing grossly normal - Neck Neck: Present: normal ROM - Respiratory Respiratory: bilateral: CTA - Cardiovascular Rhythm: regular Heart sounds: normal: S1, S2 - Integumentary Integumentary Comment(s): Biopsy site right breast clean and dry, no evidence of any infection or hematoma Integumentary: Present: normal turgor Assessment and Plan Assessment: Impression: Patient status post right breast are detected core biopsy, pathology felt to be benign and concordant Plan: Repeat right breast mammogram in 6 months with physician exam at that time CC: Dr. Fuentes
== END ==
LOC: WWCWWP 10:50
PROVIDERS: ATTEND Surgery
DX: N60.11 Diffuse cystic mastopathy of right breast (principal)

== ENCOUNTER 2022-04-02 11:01 | Day surgery (SDC) | payer BC ==
[2022-03-30 15:16] VITALS: BMI 38.6
[~2022-04-02 11:01] MED LIST changes: -GLYCOPYRROLATE 0.2 MG/ML 2 ML VIAL ONE; -LACTATED RINGERS 1,000 ML IV SCH; +LIDOCAINE 1% (10MG/ML) FOR IV START INTRADERMA PRN; -LIDOCAINE 1% INJ 10MG/ML (20 ML MDV) ONE; -MIDAZOLAM 2 MG/2 ML VIAL ONE; -PROPOFOL 10 MG/ML 20 ML VIAL IV ONE; -fentaNYL (PF) 50 MCG/ML 2 ML AMP ONE
[2022-04-02 11:26] VITALS: TEMP 97.8
[2022-04-02] MEDS: LACTATED RINGERS 1,000 ML IV SCH ×2 (11:35→12:45)
[2022-04-02] MEDS ORDERED: PROPOFOL 10 MG/ML 20 ML VIAL IV ONE (12:50)
--- NOTE | 2022-04-02 13:04 | P.PCN ---
Date of Procedure: 04/02/22 Procedure(s) Performed: BRIEF HISTORY: Patient is a 62-year-old pleasant white female scheduled for an elective colonoscopy as a part of evaluation of Hemoccult-positive stool PROCEDURE PERFORMED: Colonoscopy with biopsy. PREOPERATIVE DIAGNOSIS: Hemoccult-positive stool. IV sedation per Anesthesia. PROCEDURE: After informed consent was obtained, the patient, was brought into the endoscopy unit. IV sedation was administered by Anesthesia under continuous monitoring. Digital rectal examination was normal. Initially the Olympus CF-160 flexible video colonoscope was then inserted in the rectum, gradually advanced into the cecum without any difficulty. Careful examination was performed as the scope was gradually being withdrawn. Ileocecal valve and the appendiceal orifice were visualized and appeared normal. Prep was excellent. Mucosa of the cecum, and a 5 mm polyp that was removed by cold biopsy. Rest of the ascending colon, transverse colon, descending colon, sigmoid colon, and rectum appeared normal. Retroflexion was performed in the rectum and no lesions were seen. The patient tolerated the procedure well. IMPRESSION: 5 mm cecal polyp status post cold biopsy Scattered sigmoidal diverticulosis RECOMMENDATIONS: Findings of this examination were discussed with the patient well as her family. She was advised to follow with the biopsy results. If the biopsy results adenoma she can have a repeat colonoscopy in 5 years.
[2022-04-02 13:25] VITALS: BP 137/77; PULSE 90; RESP 16
== END 2022-04-02 14:03 | disposition home or self-care (01) ==
LOC: ORWHC2ENDO 11:01
PROVIDERS: ATTEND Internal Medicine Gastroenterology
DX: K63.5 Polyp of colon (principal); K57.30 Diverticulosis of large intestine without perforation or abscess without bleeding; R19.5 Other fecal abnormalities
CPT/HCPCS: 45380; J2704; 88305

== ENCOUNTER → 2022-04-28 | Outpatient (CLI) | payer BC ==
--- NOTE | 2022-04-30 09:35 | CT ---
EXAMINATION TYPE: CT urogram wo/w con DATE OF EXAM: 04/28/2022 COMPARISON: None HISTORY: 62-year-old female R31.1, benign essential microscopic hematuria TECHNIQUE: Contiguous axial scanning of the abdomen and pelvis performed without and with IV Contrast , patient injected with 100 mL of Isovue 300. Delayed images through the kidneys and bladder were obt ained. Coronal/sagittal reconstructions performed. Reconstructions generated on a dedicated [employer] workstation. CT DLP: 3733.1 mGycm Automated exposure control for dose reduction was used. FINDINGS: Heart upper limits of normal in size without pericardial effusion. 5 mm subpleural pulmonary nodule periphery of the left base can be reassessed at a 6 month follow-up. No pleural effusion. Small hiatal hernia. Liver enlarged and 18.6 cm with low-attenuation compatible with fatty infiltration. Greater degree of focal fat along the anterior falciform ligament. Portal venous system is patent. No biliary ductal d ilatation. Small fatty umbilical hernia. Gallbladder, adrenal glands, spleen, and pancreas within normal limits. Tiny calcified granuloma in t he spleen. Tiny anterior superior splenule. Kidneys show no nephrolithiasis. There is fullness of the bilateral renal collecting systems but with symmetric uptake and excretion o f contrast from both kidneys. Findings likely related to bilateral extra renal pelves. No suspicious renal mass. No abnormal filling defect within the renal collecting systems or along the course of the left ureter. A small segment of the middle third right ureter does not opacify but no suspicious soft tissue thickening is seen. No dilated small bowel, free fluid, or free air. No mesenteric or retroperitoneal lymphadenopathy. Moderate stool burden. No pericolonic inflammatory change. Mild diverticulosis mid to distal sigmoid colon. Bladder urine and contrast distended. No suspicious mural based mass is identified in the bladder. Uterus anteverted. Both ovaries are visualized. No abnormal fluid collection in the pelvis or pelvic lymphadenopathy. Bones: Mild degenerative spurring at the hips. Moderate degenerative disc disease L5-S1. Some bridgin g anterior endplate spondylosis in the lower thoracic spine. Facet arthropathy lower lumbar spine. IMPRESSION: 1. Fullness of the bilateral renal collecting systems but with no ureteral obstruction. There is symm etric uptake and excretion of contrast on both sides. Findings likely due to anatomic variation with bilateral extrarenal pelves. 2. No suspicious renal mass, nephrolithiasis, or suspicious filling defect along the collecting syste ms or ureters. 3. A 5 mm left lower lobe pulmonary nodule. Six-month follow-up CT chest to reassess and also to surv ey the remainder of the lungs. 4. Incidental: Small hiatal hernia, mild hepatomegaly with mild hepatic steatosis, small fatty umbili mikki hernia, and sigmoid diverticulosis.
== END | disposition home or self-care (01) ==
LOC: RADCTMAIN 13:31
PROVIDERS: ATTEND Urology
DX: R31.1 Benign essential microscopic hematuria (principal); R91.1 Solitary pulmonary nodule
CPT/HCPCS: 74178; 74400; Q9967

== ENCOUNTER → 2022-08-26 | Outpatient (CLI) | payer BC ==
--- NOTE | 2022-08-26 13:25 | MM ---
Reason for Exam: Follow-up at short interval from prior study. Last screening mammogram was performed 8 month(s) ago. Patient History: Menarche at age 12. First Full-Term at age 30. Late child-bearing (after 30). Postmenopausal. 02/25/2022, Benign MG stereo VAD BX RT on the right side. 04/08/2017, Benign Core Biopsy on the left side. Maternal cousin had breast cancer, age 57. Mother had breast cancer, age 62. Risk Values: Chuyita 5 year model risk: 4.4%. NCI Lifetime model risk: 16.9%. Prior Study Comparison: 11/26/2020 Left Diagnostic Mammogram, [facility]. 12/29/2021 Bilateral MG 3D screening mammo w/cad, [facility]. 01/14/2022 Right MG 3D work up w/cad RT, [facility]. Tissue Density: Right: The breast tissue is heterogeneously dense. This may lower the sensitivity of mammography. Findings: Analyzed By CAD. Microclip inferior right breast from benign biopsy 6 months ago. Areas of asymmetric density which is superior subareolar right MLO view remains unchanged. No significant change from prior exams. Overall Assessment: Benign, BI-RAD 2 Management: Screening Mammogram of both breasts in 6 months. See note below regarding patient's increased five-year Chuyita score. Patient should continue monthly self-breast exams. A clinical breast exam by your physician is recommended on an annual basis. This exam should not preclude additional follow-up of suspicious palpable abnormalities. Note on Chuyita scores and lifetime risk: 1. A Chuyita score greater than 3% is considered moderate risk. If this is the case, consider specialist referral to assess eligibility for a risk reducing agent. 2. If overall lifetime risk for the development of breast cancer is 20% or higher, the patient may qualify for future screening with alternating mammogram and breast MRI. Electronically signed and approved by: Alexi Singleton M.D. Radiologist
--- NOTE | 2022-08-26 14:45 | P.PN ---
Subjective Progress Note Date: 08/26/22 Principal diagnosis: fibrocystic breast disease Afua is a 62-year-old white female seen in consultation for Dr. Arellano regarding an abnormal right breast mammogram. She underwent a bilateral screening mammogram on which revealed an area of calcification of concern in the r ight breast. A diagnostic right breast mammogram was performed on which revealed pleomorphic calcifications in the inferior medial right breast. Stereotactic core biopsy was recommended. The patient does not feel any lumps masses or nodules of concern in either breast. She is not complaining of any nipple discharge or skin changes. She did have a left breast stereotactic core biopsy several years ago which was benign. Otherwise she's not had any surgery on her breast. She underwent stero biopsy on 02-25-22 which was benign concordant. Mammogram right breast 08-26-22 BIRAD 2. Patient does not feel any new lumps masses or nodules of concern in either breast. Nicotine: none caffiene: diet coke 2 liters/day chocolate: daily BCP: stopped in her 30's used for about 10 years Family History: mother: breast cancer about 55 Hormonal History: menarche: 12 [id number] breast fed: yes, age at first live : 26 menopause: 46 hormones: BCP for about 10 years, did not use hormones at the time of menopause Surgical History: D&C colonoscopy Medical History: none Social History: nicotine: none alcohol: occasional drugs: none - Constitutional Constitutional: Denies chills, Denies fever - EENT Eyes: denies blurred vision, denies pain Ears: left: decreased hearing, tinnitus Ears, nose, mouth and throat: Denies headache, Denies sore throat - Breasts Breasts: bilateral: as per HPI - Cardiovascular Cardiovascular: Denies chest pain, Denies shortness of breath - Respiratory Respiratory: Denies cough - Gastrointestinal Gastrointestinal: Denies abdominal pain, Denies diarrhea, Denies nausea, Denies vomiting - Genitourinary (Female) Genitourinary: Denies dysuria, Denies hematuria - Menstruation Menstruation: Reports postmenopausal - Musculoskeletal Musculoskeletal: Denies myalgias - Integumentary Integumentary: Denies pruritus, Denies rash - Neurological Neurological: Denies numbness, Denies weakness - Psychiatric Psychiatric: Denies anxiety, Denies depression - Endocrine Endocrine: Denies fatigue, Denies weight change - Hematologic/Lymphatic Comment: none - Allergic/Immunologic Allergic/Immunologic: Reports as per HPI Past Medical History Past Medical History: No Reported History 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 History of Any Multi-Drug Resistant Organisms: None Reported Past Surgical History: Breast Surgery Additional Past Surgical History / Comment(s): D&C. EGD 2019. Colonoscopy 2019(next after 6yr). Left breast biopsy. Past Anesthesia/Blood Transfusion Reactions: No Reported Reaction Past Psychological History: No Psychological Hx Reported Smoking Status: Never smoker Past Alcohol Use History: Rare Past Drug Use History: None Reported - Past Family History Mother Family Medical History: Cancer Additional Family Medical History / Comment(s): Breast cancer. Medications and Allergies Home Medications Medication Instructions Recorded Confirmed Type Cholecalciferol [Vitamin D3] 1,000 unit PO BID 03/24/17 02/25/22 History Multivit with Calcium,Iron,Min 1 each PO DAILY 09/28/19 02/25/22 History [Women's Multivitamin] Allergies Allergy/AdvReac Type Severity Reaction Status Date / Time No Known Allergies Allergy Verified 02/25/22 07:16 Surgical - Exam Vital Signs Temp Pulse Resp BP Pulse Ox 98.0 F 94 18 158/91 99 02/25/22 07:16 02/25/22 07:16 02/25/22 07:16 02/25/22 07:16 02/25/22 07:16 Objective - Constitutional General appearance: Present: cooperative - EENT Eyes: Present: EOMI ENT: Present: hearing grossly normal - Neck Neck: Present: normal ROM - Respiratory Respiratory: bilateral: CTA - Cardiovascular Rhythm: regular Heart sounds: normal: S1, S2 - Integumentary Integumentary: Present: normal turgor - Musculoskeletal Musculoskeletal: Present: gait normal - Psychiatric Psychiatric: Present: A&O x's 3, appropriate affect, intact judgment & insight - Additional findings Additional findings: Breast Exam: BRA: 42DDD inspection: grade 3 ptois palpation: right breast: Multiple positional exam fibrocystic changes no dominant masses or nodules of concern Right axilla: No adenopathy of concern Left breast: Multi-positional exam fibrocystic changes no dominant masses or nodules of concern Left axilla: No adenopathy of concern Assessment and Plan Assessment: Impression: Microcalcifications of concern right breast for which stero biopsy done on 02-25-22, benign concordant Fibrocystic breast changes Family history of breast cancer right breast mammogram 08-26-22 BIRAD 2 Plan: bilateral mammogram December 2022 with appointment Chuyita risk 5 year 4.4% declined chemoprevention; discussed an appointment with medical oncology to further explore this option and the patient has declined CC: Dr. Fuentes
== END | disposition home or self-care (01) ==
LOC: RADMAMWWP 12:55
PROVIDERS: ATTEND Surgery
DX: R92.8 Other abnormal and inconclusive findings on diagnostic imaging of breast (principal); N60.11 Diffuse cystic mastopathy of right breast; Z78.0 Asymptomatic menopausal state; Z80.3 Family history of malignant neoplasm of breast
CPT/HCPCS: 77061; 77065

== ENCOUNTER → 2022-08-26 | Outpatient (CLI) | payer BC ==
[2022-08-26 14:31] VITALS: BP 143/83; PULSE 79; RESP 18; TEMP 98
== END ==
LOC: WWCWWP 12:54
PROVIDERS: ATTEND Surgery
DX: Z53.9 Procedure and treatment not carried out, unspecified reason (principal)

== ENCOUNTER → 2022-12-21 | Outpatient (CLI) | payer BC ==
--- NOTE | 2022-12-21 09:24 | MM ---
Reason for Exam: Follow-up at short interval from prior study. Last screening mammogram was performed 12 month(s) ago. Patient History: Menarche at age 12. First Full-Term at age 30. Late child-bearing (after 30). Postmenopausal. 02/25/2022, Benign MG stereo VAD BX RT on the right side. 04/08/2017, Benign Core Biopsy on the left side. Maternal cousin had breast cancer, age 57. Mother had breast cancer, age 62. Risk Values: Chuyita 5 year model risk: 4.4%. NCI Lifetime model risk: 16.9%. Tissue Density: The breast tissue is heterogeneously dense. This may lower the sensitivity of mammography. Findings: Analyzed By CAD. A microclip within either breast from prior biopsies. No significant change from prior exams. Overall Assessment: Benign, BI-RAD 2 Management: Screening Mammogram of both breasts in 1 year. See note below in regards to patient's increased 5 year Chuyita score. Results were given to the patient verbally at the time of exam. Patient should continue monthly self-breast exams. A clinical breast exam by your physician is recommended on an annual basis. This exam should not preclude additional follow-up of suspicious palpable abnormalities. Note on Chuyita scores and lifetime risk: 1. A Chuyita score greater than 3% is considered moderate risk. If this is the case, consider specialist referral to assess eligibility for a risk reducing agent. 2. If overall lifetime risk for the development of breast cancer is 20% or higher, the patient may qualify for future screening with alternating mammogram and breast MRI. Electronically signed and approved by: Alexi Singleton M.D. Radiologist
== END | disposition home or self-care (01) ==
LOC: RADMAMWWP 08:38
PROVIDERS: ATTEND Surgery
DX: R92.8 Other abnormal and inconclusive findings on diagnostic imaging of breast (principal); Z78.0 Asymptomatic menopausal state; Z80.3 Family history of malignant neoplasm of breast
CPT/HCPCS: 77062; 77066

== ENCOUNTER → 2022-12-23 | Outpatient (CLI) | payer BC ==
--- NOTE | 2022-12-23 10:22 | P.PN ---
Subjective Progress Note Date: 12/23/22 Principal diagnosis: 08-26-22 fibrocystic breast disease Afua is a 62-year-old white female seen in consultation for Dr. Arellano regarding an abnormal right breast mammogram. She underwent a bilateral screening mammogram on which revealed an area of calcification of concern in the right breast. A diagnostic right breast mammogram was performed on which revealed pleomorphic calcifications in the inferior medial right breast. Stereotactic core biopsy was recommended. The patient does not feel any lumps masses or nodules of concern in either breast. She is not complaining of any nipple discharge or skin changes. She did have a left breast stereotactic core biopsy several years ago which was benign. Otherwise she's not had any surgery on her breast. She underwent stero biopsy on 02-25-22 which was benign concordant. Mammogram right breast 08-26-22 BIRAD 2. Patient does not feel any new lumps masses or nodules of concern in either breast. 12-23-22 She is not complaining of any new lumps masses or nodules of concern in either breast. BIlateral mammogram 12-21-22 BIRAD 2 personally reviewed Chuyita risk 4.4% at 5 years declined chemoprevention Nicotine: none caffiene: diet coke 2 liters/day chocolate: daily BCP: stopped in her 30's used for about 10 years Family History: mother: breast cancer about 55 Hormonal History: menarche: 12 [id number] breast fed: yes, age at first live : 26 menopause: 46 hormones: BCP for about 10 years, did not use hormones at the time of menopause Surgical History: D&C colonoscopy Medical History: none Social History: nicotine: none alcohol: occasional drugs: none - Constitutional Constitutional: Denies chills, Denies fever - EENT Eyes: denies blurred vision, denies pain Ears: left: decreased hearing, tinnitus Ears, nose, mouth and throat: Denies headache, Denies sore throat - Breasts Breasts: bilateral: as per HPI - Cardiovascular Cardiovascular: Denies chest pain, Denies shortness of breath - Respiratory Respiratory: Denies cough - Gastrointestinal Gastrointestinal: Denies abdominal pain, Denies diarrhea, Denies nausea, Denies vomiting - Genitourinary (Female) Genitourinary: Denies dysuria, Denies hematuria - Menstruation Menstruation: Reports postmenopausal - Musculoskeletal Musculoskeletal: Denies myalgias - Integumentary Integumentary: Denies pruritus, Denies rash - Neurological Neurological: Denies numbness, Denies weakness - Psychiatric Psychiatric: Denies anxiety, Denies depression - Endocrine Endocrine: Denies fatigue, Denies weight change - Hematologic/Lymphatic Comment: none - Allergic/Immunologic Allergic/Immunologic: Reports as per HPI Past Medical History Past Medical History: No Reported History 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 History of Any Multi-Drug Resistant Organisms: None Reported Past Surgical History: Breast Surgery Additional Past Surgical History / Comment(s): D&C. EGD 2019. Colonoscopy 2019(next after 6yr). Left breast biopsy. Past Anesthesia/Blood Transfusion Reactions: No Reported Reaction Past Psychological History: No Psychological Hx Reported Smoking Status: Never smoker Past Alcohol Use History: Rare Past Drug Use History: None Reported - Past Family History Mother Family Medical History: Cancer Additional Family Medical History / Comment(s): Breast cancer. Medications and Allergies Home Medications Medication Instructions Recorded Confirmed Type Cholecalciferol [Vitamin D3] 1,000 unit PO BID 03/24/17 02/25/22 History Multivit with Calcium,Iron,Min 1 each PO DAILY 09/28/19 02/25/22 History [Women's Multivitamin] Allergies Allergy/AdvReac Type Severity Reaction Status Date / Time No Known Allergies Allergy Verified 02/25/22 07:16 Surgical - Exam Vital Signs Temp Pulse Resp BP Pulse Ox 98.0 F 94 18 158/91 99 02/25/22 07:16 02/25/22 07:16 02/25/22 07:16 02/25/22 07:16 02/25/22 07:16 Objective - Vital Signs Vital signs: Vital Signs Temp 98.5 F 12/23/22 10:05 Pulse 92 12/23/22 10:05 Resp 16 12/23/22 10:05 BP 138/84 12/23/22 10:05 Pulse Ox 98 12/23/22 10:05 FiO2 Intake & Output 12/22/22 12/23/22 12/23/22 18:59 06:59 18:59 Weight 102.058 kg - Constitutional General appearance: Present: cooperative - EENT Eyes: Present: EOMI ENT: Present: hearing grossly normal - Neck Neck: Present: normal ROM - Respiratory Respiratory: bilateral: CTA - Cardiovascular Rhythm: regular Heart sounds: normal: S1, S2 - Integumentary Integumentary: Present: normal turgor - Musculoskeletal Musculoskeletal: Present: gait normal - Psychiatric Psychiatric: Present: A&O x's 3, appropriate affect, intact judgment & insight - Additional findings Additional findings: Breast Exam: BRA: 42DDD inspection: Bilateral grade 3 ptois, fungal infection under right breast palpation: right breast: Multiple positional exam fibrocystic changes no dominant masses or nodules of concern Right axilla: No adenopathy of concern Left breast: Multi-positional exam fibrocystic changes no dominant masses or nodules of concern Left axilla: No adenopathy of concern Assessment and Plan Assessment: Impression: Microcalcifications of concern right breast for which stero biopsy done on , benign concordant Fibrocystic breast changes Family history of breast cancer right breast mammogram 08-26-22 BIRAD 2, bilateral mammogram 12-21-22 BIRAD 2 Fungal infection under right breast Plan: bilateral mammogram 1 year with appointment Nystatin under right breast Chuyita risk 5 year 4.4% declined chemoprevention; discussed an appointment with medical oncology to further explore this option and the patient has declined CC: Dr. Fuentes
[2022-12-23 16:01] VITALS: BP 138/84; PULSE 92; RESP 16; TEMP 98.5
== END ==
LOC: WWCWWP 09:53
PROVIDERS: ATTEND Surgery
DX: N60.11 Diffuse cystic mastopathy of right breast (principal); R92.0 Mammographic microcalcification found on diagnostic imaging of breast; B48.8 Other specified mycoses; Z80.3 Family history of malignant neoplasm of breast

== ENCOUNTER → 2023-12-23 | Outpatient (CLI) | payer BC, MEDICARE ==
--- NOTE | 2023-12-25 17:24 | MM ---
Reason for Exam: Screening (asymptomatic). Last screening mammogram was performed 12 month(s) ago. Patient History: Menarche at age 12. First Full-Term at age 30. Late child-bearing (after 28). Postmenopausal. 02/25/2022, Benign MG stereo VAD BX RT on the right side. 04/08/2017, Benign Core Biopsy on the left side. Maternal cousin had breast cancer, age 57. Mother had breast cancer, age 62. Risk Values: Chuyita 5 year model risk: 4.6%. NCI Lifetime model risk: 16.4%. Prior Study Comparison: 01/14/2022 Right MG 3D work up w/cad RT, [facility]. 08/26/2022 Right MG 3D diag mammo w/cad RT, [facility]. 12/21/2022 Bilateral MG 3D diag mammo w/cad [facility], [facility]. Tissue Density: The breasts are heterogeneously dense, which may obscure small masses. Findings: Analyzed By CAD. Bilateral areas of asymmetric density remain unchanged. Microclip left breast from prior biopsy. There is no suspicious group of microcalcifications or new suspicious mass in either breast. Overall Assessment: Benign, BI-RAD 2 Management: Screening Mammogram of both breasts in 1 year. See note below in regards to the patient's increased 5 year Chuyita score. Patient should continue monthly self-breast exams. A clinical breast exam by your physician is recommended on an annual basis. This exam should not preclude additional follow-up of suspicious palpable abnormalities. Note on Chuyita scores and lifetime risk: 1. A Chuyita score greater than 3% is considered moderate risk. If this is the case, consider specialist referral to assess eligibility for a risk reducing agent. 2. If overall lifetime risk for the development of breast cancer is 20% or higher, the patient may qualify for future screening with alternating mammogram and breast MRI. [facility], , 12/25/2023 5:21 PM. Electronically signed and approved by: Alexi Singleton M.D. Radiologist
== END | disposition home or self-care (01) ==
LOC: RADMAMWWP 08:16
PROVIDERS: ATTEND Surgery
DX: Z12.31 Encounter for screening mammogram for malignant neoplasm of breast
CPT/HCPCS: 77063; 77067

== ENCOUNTER → 2023-12-29 | Outpatient (CLI) | payer MEDICARE ==
[2023-12-29 10:20] VITALS: BP 122/77; PULSE 72; RESP 18; TEMP 98
--- NOTE | 2023-12-29 10:48 | P.PN ---
Subjective Progress Note Date: 12/29/23 Principal diagnosis: fibrocystic breast disease Principal diagnosis: 08-26-22 fibrocystic breast disease Afua is a 62-year-old white female seen in consultation for Dr. Arellano regarding an abnormal right breast mammogram. She underwent a bilateral screening mammogram on which revealed an area of calcification of concern in the right breast. A diagnostic right breast mammogram was performed on which revealed pleomorphic calcifications in the inferior medial right breast. Stereotactic core biopsy was recommended. The patient does not feel any lumps masses or nodules of concern in either breast. She is not complaining of any nipple discharge or skin changes. She did have a left breast stereotactic core biopsy several years ago which was benign. Otherwise she's not had any surgery on her breast. She underwent stero biopsy on 02-25-22 which was benign concordant. Mammogram right breast 08-26-22 BIRAD 2. Patient does not feel any new lumps masses or nodules of concern in either breast. 12-23-22 She is not complaining of any new lumps masses or nodules of concern in either breast. BIlateral mammogram 12-21-22 BIRAD 2 personally reviewed Chuyita risk 4.4% at 5 years declined chemoprevention 12-29-23 bilateral mammogram on 12-23-23 BIRAD 2 personally reviewed and interpreted She is not complaining of any new lumps masses or nodules of concern in either breast. Chuyita risk: 4.6% NCI lifetime risk 16.4% We have discussed chemoprophylaxis and at this time she has declined Nicotine: none caffiene: diet coke 2 liters/day chocolate: daily BCP: stopped in her 30's used for about 10 years Family History: mother: breast cancer about 55 two maternal cousins: breast cancer (age at dx. 62 and other about 55) Hormonal History: menarche: 12 [id number] breast fed: yes, age at first live : 26 menopause: 46 hormones: BCP for about 10 years, did not use hormones at the time of menopause Surgical History: D&C colonoscopy Medical History: HTN Social History: nicotine: none alcohol: occasional drugs: none - Constitutional Constitutional: Denies chills, Denies fever - EENT Eyes: denies blurred vision, denies pain Ears: left: decreased hearing, tinnitus Ears, nose, mouth and throat: Denies headache, Denies sore throat - Breasts Breasts: bilateral: as per HPI - Cardiovascular Cardiovascular: Denies chest pain, Denies shortness of breath - Respiratory Respiratory: Denies cough - Gastrointestinal Gastrointestinal: Denies abdominal pain, Denies diarrhea, Denies nausea, Denies vomiting - Genitourinary (Female) Genitourinary: Denies dysuria, Denies hematuria - Menstruation Menstruation: Reports postmenopausal - Musculoskeletal Musculoskeletal: Denies myalgias - Integumentary Integumentary: Denies pruritus, Denies rash - Neurological Neurological: Denies numbness, Denies weakness - Psychiatric Psychiatric: Denies anxiety, Denies depression - Endocrine Endocrine: Denies fatigue, Denies weight change - Hematologic/Lymphatic Comment: none - Allergic/Immunologic Allergic/Immunologic: Reports as per HPI Past Medical History Past Medical History: No Reported History 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 History of Any Multi-Drug Resistant Organisms: None Reported Past Surgical History: Breast Surgery Additional Past Surgical History / Comment(s): D&C. EGD 2019. Colonoscopy 2019(next after 6yr). Left breast biopsy. Past Anesthesia/Blood Transfusion Reactions: No Reported Reaction Past Psychological History: No Psychological Hx Reported Smoking Status: Never smoker Past Alcohol Use History: Rare Past Drug Use History: None Reported - Past Family History Mother Family Medical History: Cancer Additional Family Medical History / Comment(s): Breast cancer. Medications and Allergies Home Medications Medication Instructions Recorded Confirmed Type Cholecalciferol [Vitamin D3] 1,000 unit PO BID 03/24/17 02/25/22 History Multivit with Calcium,Iron,Min 1 each PO DAILY 09/28/19 02/25/22 History [Women's Multivitamin] Allergies Allergy/AdvReac Type Severity Reaction Status Date / Time No Known Allergies Allergy Verified 02/25/22 07:16 Objective - Vital Signs Vital signs: Vital Signs Temp 98 F 12/29/23 10:17 Pulse 72 12/29/23 10:17 Resp 18 12/29/23 10:17 BP 122/77 12/29/23 10:17 Pulse Ox 97 12/29/23 10:17 FiO2 Intake & Output 09/18/24 09/19/24 09/19/24 18:59 06:59 18:59 Weight 102.058 kg - Constitutional General appearance: Present: cooperative - EENT Eyes: Present: EOMI ENT: Present: hearing grossly normal - Neck Neck: Present: normal ROM - Respiratory Respiratory: bilateral: CTA - Cardiovascular Rhythm: regular Heart sounds: normal: S1, S2 - Integumentary Integumentary: Present: normal turgor - Musculoskeletal Musculoskeletal: Present: gait normal - Psychiatric Psychiatric: Present: A&O x's 3, appropriate affect, intact judgment & insight - Additional findings Additional findings: Breast Exam: BRA: 42DDD inspection: Bilateral grade 3 ptosis, palpation: right breast: Multiple positional exam fibrocystic changes no dominant masses or nodules of concern Right axilla: No adenopathy of concern Left breast: Multi-positional exam fibrocystic changes no dominant masses or nodules of concern Left axilla: No adenopathy of concern fungal infection under right breast Assessment and Plan Assessment: Impression: Microcalcifications of concern right breast for which stero biopsy done on 02-25-22, benign concordant Fibrocystic breast changes Family history of breast cancer bilateral mammogram 12-23-23 BIRAD 2, personally reviewed and interpreted fungal infection under right breast Plan: bilateral mammogram 1 year with appointment nystatin under right breast Chuyita risk 5 year 4.6% declined chemoprevention; discussed an appointment with medical oncology to further explore this option and the patient has declined CC: Dr. Fuentes
== END ==
LOC: WWCWWP 09:23
PROVIDERS: ATTEND Surgery
DX: R92.0 Mammographic microcalcification found on diagnostic imaging of breast (principal); N60.11 Diffuse cystic mastopathy of right breast; Z80.3 Family history of malignant neoplasm of breast